=== PATIENT | male | born 1950 | race African-American/Black ===

== ENCOUNTER 2022-06-27 13:03 | Inpatient (IN) | payer BC, MEDICARE, MEDICAID ==
[~2022-06-27] VITALS: Ht 183 cm; Wt 136.1 kg
[2022-06-27 15:01] LABS: BASOPHILS % 0.5 % (0.0-2.0); HEMATOCRIT. 42.3 % (42.0-52.0); HEMOGLOBIN. 13.6 g/dL (14.0-18.0); LYMPHOCYTES % 15.3 % (20.0-50.0); MEAN CORPUSCULAR HEMOGLOBIN 26.8 pg (28.0-32.0); MEAN CORPUSCULAR VOLUME 83.6 fL (80.0-94.0); MEAN PLATELET VOLUME 7.6 fl (7.4-10.4); MONOCYTES % 7.3 % (2.0-8.0); NEUTROPHILS % 74.9 % (40.0-76.0); PLATELET 257 x1000/uL (130-400); RED BLOOD CELL COUNT 5.06 mill/uL (4.7-6.1); RED CELL DISTRIBUTION WIDTH 15.7 % (11.6-14.6)
[2022-06-27 15:10] LABS: CHLORIDE 110 mEq/L (98-107)
[2022-06-27 15:13] LABS: PROTHROMBIN TIME 11.1 sec (9.6-11.0)
[2022-06-27] MEDS ORDERED: MORPHINE SULFATE 10 MG/ML CPJ IM ONE (18:00)
[2022-06-27] MEDS ORDERED: MORPHINE SULFATE 10 MG/ML CPJ IM NR (20:00)
[2022-06-27] MEDS ORDERED: IPRATROPIUM/ALBUTEROL 0.5-3(2.5)MG/3ML NEB HHN PRN (21:30)
[2022-06-27] MEDS ORDERED: MORPHINE SULFATE 2 MG/ML CPJ (NOT FOR IM USE) IV PRN ×2 (21:30→22:00)
[2022-06-27] MEDS ORDERED: ONDANSETRON HCL 4MG/2ML INJ IV PRN (21:30)
[2022-06-27 22:00] VITALS: BP 119/68
[2022-06-27] MEDS ORDERED: HYDRALAZINE 20MG/ML VIAL IV PRN (22:00)
[2022-06-28] VITALS (18 sets, daily range): BP systolic 91–175; BP diastolic 37–98
[2022-06-28] MEDS: FAMOTIDINE 20MG/2ML VIAL IV SCH ×2 (09:04→21:25)
[2022-06-28] MEDS ORDERED: THROMBIN (BOVINE) 5000 UNITS/VIAL TOP ONE (11:21)
[2022-06-28] MEDS ORDERED: GENTAMICIN SULF 40MG/ML 2ML VIAL ONE (11:22)
[2022-06-28] MEDS ORDERED: LIDOCAINE HCL 2%/EPINEPHRINE 1:100,000 20 ML VIAL INFIL ONE (11:22)
[2022-06-28] MEDS ORDERED: NALOXONE HCL 0.4MG/ML VIAL IV PRN (14:45)
[2022-06-28] MEDS: DEXT 5%/LACTATED RINGERS 1,000 ML IV SCH ×2 (14:45→23:17)
[2022-06-28] MEDS ORDERED: NICARDIPINE 100 MG in SODIUM CHLORIDE 0.9% 60 ML IV PRN (14:45)
[2022-06-28 15:52] LABS: BASOPHILS % 0.6 % (0.0-2.0); EOSINOPHILS % 2.5 % (0.0-5.0); HEMOGLOBIN. 11.6 g/dL (14.0-18.0); LYMPHOCYTES % 17.7 % (20.0-50.0); MEAN CORPUSCULAR HEMOGLOBIN 26.9 pg (28.0-32.0); MEAN CORPUSCULAR VOLUME 86.3 fL (80.0-94.0); MEAN PLATELET VOLUME 8.3 fl (7.4-10.4); MONOCYTES % 10.3 % (2.0-8.0); NEUTROPHILS % 68.9 % (40.0-76.0); PLATELET 244 x1000/uL (130-400); RED BLOOD CELL COUNT 4.29 mill/uL (4.7-6.1); RED CELL DISTRIBUTION WIDTH 15.9 % (11.6-14.6)
[2022-06-28 16:01] LABS: INR 1.1; PARTIAL THROMBOPLASTIN TIME 30.6 sec (23.4-31.0); PROTHROMBIN TIME 11.3 sec (9.6-11.0)
[2022-06-28 16:07] LABS: CHLORIDE 108 mEq/L (98-107)
[2022-06-28 16:13] LABS: LDL CHOLESTEROL 119 mg/dL (5-100)
[2022-06-28 16:24] LABS: HDL CHOLESTEROL 48 mg/dL (40-59)
[2022-06-28] MEDS: CEFAZOLIN 1000MG PREMIX 50 ML IV SCH (16:59)
[2022-06-28] MEDS: MORPHINE SULFATE 4 MG/ML CPJ (NOT FOR IM USE) IV PRN ×2 (17:43→22:36)
[2022-06-28 18:42] LABS: BG CARBOXYHEMOGLOBIN 0.3 % (0.5-1.5); BG FRACTION INSPIRED OXYGEN 40; BG HCO3 ACT 20.8 mmol/L (22.0-26.0); BG METHEMOGLOBIN 0.3 % (0.0-1.5); BG OXYHEMOGLOBIN 96.4 % (94.0-97.0); BG PCO2 37.2 mmHg (35.0-45.0); BG PH 7.365 (7.350-7.450); BG PO2 91.8 mmHg (75.0-100.0); BG SAMPLE SITE LEFT RADIAL; BG VENT MODE VENT - CPAP
[2022-06-28 21:33] LABS: BG BASE EXCESS 1.2 mmol/L (-2.0-2.0); BG CARBOXYHEMOGLOBIN 0.3 % (0.5-1.5); BG FRACTION INSPIRED OXYGEN 36; BG HCO3 ACT 26.6 mmol/L (22.0-26.0); BG METHEMOGLOBIN 0.5 % (0.0-1.5); BG OXYHEMOGLOBIN 97.2 % (94.0-97.0); BG PCO2 45.5 mmHg (35.0-45.0); BG PH 7.385 (7.350-7.450); BG PO2 109.2 mmHg (75.0-100.0); BG SAMPLE SITE RIGHT RADIAL; BG TOTAL HEMOGLOBIN 12.3 g/dL (12.0-18.0); BG VENT MODE NASAL CANNULA
[2022-06-28] MEDS ORDERED: CEFAZOLIN SODIUM 1000MG/VIAL IV SCH (22:00)
[2022-06-29] VITALS (48 sets, daily range): BP systolic 87–160; BP diastolic 54–118
[2022-06-29] MEDS: CEFAZOLIN 1000MG PREMIX 50 ML IV SCH ×3 (02:00→18:01)
[2022-06-29 06:06] LABS: BASOPHILS % 0.3 % (0.0-2.0); EOSINOPHILS % 0.3 % (0.0-5.0); HEMATOCRIT. 35.2 % (42.0-52.0); HEMOGLOBIN. 10.8 g/dL (14.0-18.0); LYMPHOCYTES % 7.6 % (20.0-50.0); MEAN CORPUSCULAR HEMOGLOBIN 26.8 pg (28.0-32.0); MEAN PLATELET VOLUME 7.9 fl (7.4-10.4); MONOCYTES % 9.2 % (2.0-8.0); NEUTROPHILS % 82.6 % (40.0-76.0); PLATELET 228 x1000/uL (130-400); RED BLOOD CELL COUNT 4.05 mill/uL (4.7-6.1); RED CELL DISTRIBUTION WIDTH 15.8 % (11.6-14.6)
[2022-06-29 06:48] LABS: CHLORIDE 106 mEq/L (98-107)
[2022-06-29] MEDS: DEXT 5%/LACTATED RINGERS 1,000 ML IV SCH ×3 (08:10→23:05)
[2022-06-29] MEDS: FAMOTIDINE 20MG/2ML VIAL IV SCH ×2 (08:11→21:39)
[2022-06-29] MEDS: MORPHINE SULFATE 4 MG/ML CPJ (NOT FOR IM USE) IV PRN ×2 (08:12→12:59)
[2022-06-29] MEDS ORDERED: SILVER NITRATE APPLICATOR STICK TOP SCH (18:00)
[2022-06-30] VITALS (28 sets, daily range): BP systolic 98–136; BP diastolic 54–85
[2022-06-30] MEDS: MORPHINE SULFATE 4 MG/ML CPJ (NOT FOR IM USE) IV PRN ×5 (00:20→23:49)
[2022-06-30] MEDS: CEFAZOLIN 1000MG PREMIX 50 ML IV SCH ×3 (02:31→17:21)
[2022-06-30 06:04] LABS: HEMATOCRIT. 34.1 % (42.0-52.0); HEMOGLOBIN. 10.9 g/dL (14.0-18.0); MEAN CORPUSCULAR HEMOGLOBIN 27.7 pg (28.0-32.0); MEAN CORPUSCULAR VOLUME 86.3 fL (80.0-94.0); MEAN PLATELET VOLUME 8.5 fl (7.4-10.4); PLATELET 169 x1000/uL (130-400); RED BLOOD CELL COUNT 3.95 mill/uL (4.7-6.1); RED CELL DISTRIBUTION WIDTH 15.9 % (11.6-14.6)
[2022-06-30 06:10] LABS: CHLORIDE 110 mEq/L (98-107)
[2022-06-30] MEDS: DEXT 5%/LACTATED RINGERS 1,000 ML IV SCH ×4 (06:45→22:45)
[2022-06-30 07:56] LABS: PLATELET ESTIMATE NORMAL
[2022-06-30] MEDS: FAMOTIDINE 20MG/2ML VIAL IV SCH ×2 (08:14→23:50)
[2022-06-30] MEDS ORDERED: LIDOCAINE HCL/PF 1% 10 MG/ML 5ML VIAL ONE (10:42)
[2022-06-30] MEDS ORDERED: HYDRALAZINE 10 MG in SODIUM CHLORIDE 0.9% 49.5 ML IV PRN (19:00)
[2022-07-01] VITALS: BP 110/70
[2022-07-01] MEDS: MORPHINE SULFATE 4 MG/ML CPJ (NOT FOR IM USE) IV PRN ×2 (02:16→14:07)
[2022-07-01 04:00] VITALS: BP 123/84
[2022-07-01] MEDS: DEXT 5%/LACTATED RINGERS 1,000 ML IV SCH ×3 (06:45→22:45)
[2022-07-01 08:00] VITALS: BP 130/86
[2022-07-01 08:33] LABS: BASOPHILS % 0.6 % (0.0-2.0); EOSINOPHILS % 1.8 % (0.0-5.0); HEMATOCRIT. 30.4 % (42.0-52.0); HEMOGLOBIN. 9.6 g/dL (14.0-18.0); MEAN CORPUSCULAR HEMOGLOBIN 26.9 pg (28.0-32.0); MEAN CORPUSCULAR VOLUME 84.8 fL (80.0-94.0); MONOCYTES % 11.6 % (2.0-8.0); RED BLOOD CELL COUNT 3.58 mill/uL (4.7-6.1); RED CELL DISTRIBUTION WIDTH 15.5 % (11.6-14.6)
[2022-07-01 08:58] LABS: CHLORIDE 106 mEq/L (98-107)
[2022-07-01] MEDS: FAMOTIDINE 20MG/2ML VIAL IV SCH ×2 (10:18→22:52)
[2022-07-01 10:54] LABS: MEAN PLATELET VOLUME 8.9 fl (7.4-10.4); PLATELET 184 x1000/uL (130-400); PLATELET ESTIMATE NORMAL
[2022-07-01 12:00] VITALS: BP 124/56
[2022-07-01 16:00] VITALS: BP 115/56
[2022-07-01 20:00] VITALS: BP 129/79
[2022-07-02] VITALS: BP 127/74
[2022-07-02] MEDS: DEXT 5%/LACTATED RINGERS 1,000 ML IV SCH ×3 (02:30→23:48)
[2022-07-02 04:00] VITALS: BP 159/81
[2022-07-02 08:00] VITALS: BP 135/86
[2022-07-02] MEDS: FAMOTIDINE 20MG/2ML VIAL IV SCH ×2 (08:26→21:31)
[2022-07-02 09:30] LABS: CHLORIDE 107 mEq/L (98-107)
[2022-07-02 09:34] LABS: HEMATOCRIT 27.2 % (42.0-52.0); HEMOGLOBIN 8.9 g/dL (14.0-18.0); MEAN CORPUSCULAR HEMOGLOBIN 28.2 pg (28.0-32.0); MEAN CORPUSCULAR VOLUME 86.6 fL (80.0-94.0); PLATELET 177 x1000/uL (130-400); RED BLOOD CELL COUNT 3.15 mill/uL (4.7-6.1); RED CELL DISTRIBUTION WIDTH 15.7 % (11.6-14.6)
[2022-07-02] MEDS: MORPHINE SULFATE 4 MG/ML CPJ (NOT FOR IM USE) IV PRN ×2 (10:19→14:48)
[2022-07-02] MEDS ORDERED: NA PHOS,M-B/NA PHOS,DI-BA ENEMA 118ML PR NR (11:30)
[2022-07-02 12:00] VITALS: BP 104/77
[2022-07-02] MEDS: LACTULOSE 20G/30ML UDC PO SCH ×3 (12:53→17:00)
[2022-07-02 16:00] VITALS: BP 155/68
[2022-07-02 20:00] VITALS: BP 143/81
[2022-07-03] VITALS: BP 130/80
[2022-07-03 04:00] VITALS: BP 162/91
[2022-07-03] MEDS: HYDROCODONE/ACETAMINOPHEN 5/325MG TABLET PO PRN ×2 (05:16→13:41)
[2022-07-03 08:00] VITALS: BP 150/76
[2022-07-03] MEDS: BISACODYL 10MG SUPP PR SCH ×2 (08:20→10:22)
[2022-07-03] MEDS: FAMOTIDINE 20MG/2ML VIAL IV SCH ×3 (09:00→20:47)
[2022-07-03] MEDS ORDERED: LIDOCAINE HCL 1% 10 MG/ML 10ML VIAL IJ SCH (09:00)
[2022-07-03 12:00] VITALS: BP 160/70
[2022-07-03] MEDS: DEXT 5%/LACTATED RINGERS 1,000 ML IV SCH ×2 (15:33→22:27)
[2022-07-03 16:00] VITALS: BP 96/45
[2022-07-03 20:00] VITALS: BP 105/56
[2022-07-03] MEDS: ATORVASTATIN CALCIUM 20MG TABLET PO SCH (20:47)
[2022-07-04] VITALS: BP 137/84
[2022-07-04 04:00] VITALS: BP 138/83
[2022-07-04] MEDS: DEXT 5%/LACTATED RINGERS 1,000 ML IV SCH ×3 (05:47→22:43)
[2022-07-04 08:00] VITALS: BP 153/91
[2022-07-04] MEDS: BISACODYL 10MG SUPP PR SCH (08:20)
[2022-07-04] MEDS: FAMOTIDINE 20MG/2ML VIAL IV SCH (09:37)
[2022-07-04] MEDS ORDERED: KETOROLAC 15MG/ML VIAL IV PRN (11:15)
[2022-07-04] MEDS: IBUPROFEN 600MG TABLET PO PRN (11:28)
[2022-07-04 12:00] VITALS: BP 124/76
[2022-07-04] MEDS ORDERED: IBUP-2029 PO (12:50)
[2022-07-04] MEDS ORDERED: ATOR20TA PO (12:50)
[2022-07-04 16:00] VITALS: BP 131/70
[2022-07-04 20:00] VITALS: BP 146/80
[2022-07-04] MEDS: FAMOTIDINE 20MG TABLET PO SCH (21:00)
[2022-07-04] MEDS: ATORVASTATIN CALCIUM 20MG TABLET PO SCH (21:00)
[2022-07-05] VITALS (7 sets, daily range): BP systolic 127–162; BP diastolic 74–89
[2022-07-05] MEDS: IBUPROFEN 600MG TABLET PO PRN ×3 (01:45→22:27)
[2022-07-05] MEDS: DEXT 5%/LACTATED RINGERS 1,000 ML IV SCH (05:59)
[2022-07-05] MEDS: FAMOTIDINE 20MG TABLET PO SCH ×2 (10:15→19:57)
[2022-07-05] MEDS: BISACODYL 10MG SUPP PR SCH (10:15)
[2022-07-05] MEDS: ATORVASTATIN CALCIUM 20MG TABLET PO SCH (19:57)
== END 2022-07-06 01:16 | DRG 459 ==
LOC: ER 13:03 → EDBEDREQ 15:41 → 6EST 18:24 → EDBEDREQTM 18:49 → EDBEDREQ 18:49 → EDBEDREQSVC 18:49 → ENRESERV 20:13 → MICUSO 06-28 13:51 → 6EST 06-30 18:48
PROVIDERS: ADMIT Hospitalist; ATTEND Hospitalist
PROC: 0SG0071 Fusion of Lumbar Vertebral Joint with Autologous Tissue Substitute, Posterior Approach, Posterior Column, Open Approach (ICD-10-PCS; principal; 2022-06-28)
PROC: 01NB0ZZ Release Lumbar Nerve, Open Approach (ICD-10-PCS; 2022-06-28)
PROC: 02HV33Z Insertion of Infusion Device into Superior Vena Cava, Percutaneous Approach (ICD-10-PCS; 2022-06-30)
PROC: B548ZZA Ultrasonography of Superior Vena Cava, Guidance (ICD-10-PCS; 2022-06-30)
DX: M48.061 Spinal stenosis, lumbar region without neurogenic claudication (principal); G82.50 Quadriplegia, unspecified; G93.41 Metabolic encephalopathy; G82.20 Paraplegia, unspecified; Z68.41 Body mass index [BMI] 40.0-44.9, adult; K59.2 Neurogenic bowel, not elsewhere classified; I10 Essential (primary) hypertension; E78.00 Pure hypercholesterolemia, unspecified; L97.519 Non-pressure chronic ulcer of other part of right foot with unspecified severity; E66.9 Obesity, unspecified; M47.896 Other spondylosis, lumbar region; M24.575 Contracture, left foot; M24.574 Contracture, right foot; D64.9 Anemia, unspecified; R26.9 Unspecified abnormalities of gait and mobility; E78.5 Hyperlipidemia, unspecified; L60.0 Ingrowing nail; M43.16 Spondylolisthesis, lumbar region; Z79.899 Other long term (current) drug therapy; Z86.73 Personal history of transient ischemic attack (TIA), and cerebral infarction without residual deficits; Z96.652 Presence of left artificial knee joint; Z20.822 Contact with and (suspected) exposure to COVID-19; Z80.3 Family history of malignant neoplasm of breast; Z99.3 Dependence on wheelchair
CPT/HCPCS: 36415; 36573; 36600; 70551; 71045; 72100; 72148; 74018; 76000; 80048; 80053; 80061; 82375; 82805; 85025; 85027; 85379; 86850; 86900; 87426; 93005; 93970; 94002; 95863; 95925; 95926; 95928; 95929; 97110; 97162; 97166; 97530; 99285; C1713; C1725; C1893; C9803; J0690; J1580; J1885; J2270; J3490; J7121; C1762